=== PATIENT | female | born 1995 | race Caucasian/White ===

== ENCOUNTER 2020-04-24 14:00 | Emergency (ER) | payer MEDICAID ==
[~2020-04-24] VITALS: Ht 167.6 cm; Wt 59.0 kg
[2020-04-24] MEDS ORDERED: LORA-259 PO (14:10)
[2020-04-24] MEDS ORDERED: ONDA4TAB5 PO (14:10)
[2020-04-24] MEDS ORDERED: HYDR-3972 PO (14:10)
[2020-04-24] MEDS ORDERED: LAMO150T6 PO (14:10)
--- NOTE | 2020-04-24 14:14 | NUR ---
MD@bedside, medical screening exam in progress
[2020-04-24] MEDS ORDERED: ONDANSETRON 4 MG/2 ML VIAL ONE (14:26)
[2020-04-24] MEDS ORDERED: HYDROMORPHONE 1 MG/1 ML DISP.SYRIN ONE ×2 (14:26→15:29)
[2020-04-24] MEDS ORDERED: HYDROMORPHONE 1 MG/1 ML DISP.SYRIN IV ONE ×2 (14:30→15:30)
[2020-04-24] MEDS ORDERED: ONDANSETRON 4 MG/2 ML VIAL IV ONE (14:30)
[2020-04-24] MEDS ORDERED: IV NORMAL SALINE 1000 ML BAG IV ONE (14:30)
--- NOTE | 2020-04-24 14:35 | NUR ---
Comfort and safety measures maintained (blanket, pillow, emesis bag@bedside)
[2020-04-24 14:39] LABS: BASOPHILS % (AUTO) 0.4 % (0.0-2.0); EOSINOPHILS # (AUTO) 0.3 K/uL (0.0-0.7); EOSINOPHILS % (AUTO) 3.8 % (0.0-7.0); HEMATOCRIT 42.1 % (31.2-41.9); LYMPHOCYTES # (AUTO) 2.1 K/uL (20.0-40.0); LYMPHOCYTES % (AUTO) 25.6 % (20.5-51.5); MEAN CORPUSCULAR HEMOGLOBIN 28.2 uug (24.7-32.8); MEAN CORPUSCULAR HGB CONC 33 g/dL (32.3-35.6); MEAN CORPUSCULAR VOLUME 84.6 fL (75.5-95.3); MONOCYTES # (AUTO) 0.5 K/uL (2.0-10.0); MONOCYTES % (AUTO) 5.6 % (0.0-11.0); NEUTROPHILS # (AUTO) 5.3 K/uL (1.8-8.9); NEUTROPHILS % (AUTO) 64.6 % (38.5-71.5); PLATELET COUNT (AUTO) 261 K/uL (179-408); RED BLOOD CELL COUNT(AUTO) 4.98 MIL/uL (3.63-4.92); WHITE BLOOD COUNT (AUTO) 8.3 K/uL (3.8-11.8)
[2020-04-24 14:45] LABS: CREATININE 0.7 mg/dL (0.6-1.3); POTASSIUM 3.5 mmol/L (3.5-5.1)
[2020-04-24 14:47] LABS: *BILIRUBIN,URIN NEGATIVE (NEGATIVE); *BLOOD, URINE 2+ (NEGATIVE); *CLARITY,URINE CLEAR (CLEAR); *COLOR,URINE YELLOW (YELLOW); *KETONES,URINE NEGATIVE (NEGATIVE); *UROBILINOGEN,URINE 0.2 E.U./dl (NORMAL); LEUKOCYTE ESTERASE ,URINE NEGATIVE (NEGATIVE); NITRITE, URINE NEGATIVE (NEGATIVE); PH,URINE 8.5 (5.0-8.0); UGLUCOSE NEGATIVE (NEGATIVE)
[2020-04-24 14:50] LABS: *URINE HCG, QUAL POSITIVE (NEGATIVE)
[2020-04-24 14:52] LABS: BILIRUBIN,DIRECT 0.3 mg/dL (0.0-0.2); BILIRUBIN,TOTAL 1.5 mg/dL (0.2-1.0); TOTAL PROTEIN, SERUM 7.7 g/dL (6.4-8.2)
--- NOTE | 2020-04-24 14:59 | NUR ---
MD@bedside, informing patient that the her urine test=positive. Patient says that this is a surprising news, patient is still c/o pains & nausea. Extensive explanation and information was given to patient re: negative effects of narcotics & IV medicines to early . Patient verbalized understanding.
--- NOTE | 2020-04-24 15:11 | NUR ---
Patient is now tearful, listening ear provided.
--- NOTE | 2020-04-24 15:18 | NUR ---
Patient wants more pain & anti-nausea medicines. "Reglan works better for me." per patient's verbalization. MD is aware.
[2020-04-24 15:19] LABS: BACTERIA,URINE FEW /HPF (NONE SEEN); SQUAMOUS EPITHELIAL CELL,UR FEW /HPF (NONE SEEN); WBC,URINE 0-3 /HPF (0-3)
[2020-04-24] MEDS ORDERED: METOCLOPRAMIDE HCL 10 MG/2 ML VIAL ONE (15:28)
[2020-04-24] MEDS ORDERED: METOCLOPRAMIDE HCL 10 MG/2 ML VIAL IV ONE (15:30)
--- NOTE | 2020-04-24 15:36 | NUR ---
OB pad given per patient's request. New face mask provided. Comfort & safety measures maintained.
--- NOTE | 2020-04-24 15:47 | NUR ---
Patient is seen calmer now, not crying anymore, pending U/S & lab tests results@this time.
[2020-04-24 16:05] LABS: *URINE HCG, QUAL POSITIVE (NEGATIVE)
--- NOTE | 2020-04-24 16:30 | NUR ---
Patient is resting comfortably in bed with eyes closed, still for U/S scan
--- NOTE | 2020-04-24 17:52 | NUR ---
Patient ate crackers & drank juice. No nausea expressed. No vomiting seen while in ER. IV removed. Catheter intact and site benign. Pressure and 4x4 gauze applied to site. No bleeding noted. Patient discharged to home in stable condition & steady gait. Written and verbal after care instructions given to patient. Patient verbalized understanding & compliance of instructions. Stressed follow up with her primary doctor/[id number] or return to ER for worsening s/s.
--- NOTE | 2020-04-24 17:54 | NUR ---
Patient said that she already called for a ride & will not be driving home.
== END 2020-04-24 18:04 | disposition home or self-care (01) ==
LOC: ER 14:04
DX: R10.31 Right lower quadrant pain (principal); Z85.43 Personal history of malignant neoplasm of ovary; Z92.3 Personal history of irradiation; Z92.21 Personal history of antineoplastic chemotherapy; R11.2 Nausea with vomiting, unspecified; N92.6 Irregular menstruation, unspecified
CPT/HCPCS: 36415; 76856; 80048; 80076; 81001; 83690; 84702; 84703 ×2; 85025; 86850; 86900; 86901; 96374; 96375; 96376; 99285; J1170 ×2; J2405; J2765; A4663; J3490; J7030

== ENCOUNTER 2020-05-05 14:56 | Emergency (ER) | payer MEDICAID ==
[~2020-05-05] VITALS: Ht 165.1 cm; Wt 54.4 kg
[~2020-05-05 14:56] MED LIST: HYDR-3972 PO; LAMO150T6 PO; LORA-259 PO; ONDA4TAB5 PO
--- NOTE | 2020-05-05 15:00 | NUR ---
Dr. Martin at bedside for MSE
--- NOTE | 2020-05-05 15:11 | NUR ---
Patient ambulating with steady gait. A&O x4. patient noted smiling, laughing, very conversive with staff. c/o RLQ ABD pain 10/10 on the pain scale. 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 Speech is clear and able to make needs known / follow commands. Breathing even and unlabored. Denies any cough, SOB, CP, Dizziness. Patient states she was last in the ER on 04/24/2020 but per ED report patient has been seen at other ER since then. 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 asked patient what has been done and patient stated "just general check ups and they did not find anything. They told me to come to the ER if symptoms do not become better". Safety precautions implemented. s/r up x2
[2020-05-05] MEDS ORDERED: HYDROMORPHONE 1 MG/1 ML DISP.SYRIN IV ONE ×3 (15:15→18:15)
[2020-05-05] MEDS ORDERED: ONDANSETRON 4 MG/2 ML VIAL IV ONE ×5 (15:15→20:15)
[2020-05-05] MEDS ORDERED: IV NORMAL SALINE 1000 ML BAG IV ONE ×3 (15:15→18:15)
[2020-05-05] MEDS ORDERED: HYDROMORPHONE 2 MG/1 ML DISP.SYRIN ONE ×2 (15:29→16:27)
[2020-05-05] MEDS ORDERED: ONDANSETRON 4 MG/2 ML VIAL ONE ×5 (15:29→20:11)
[2020-05-05 15:38] LABS: *BILIRUBIN,URIN NEGATIVE (NEGATIVE); *BLOOD, URINE NEGATIVE (NEGATIVE); *CLARITY,URINE CLEAR (CLEAR); *COLOR,URINE LIGHT YELLOW (YELLOW); *KETONES,URINE NEGATIVE (NEGATIVE); *UROBILINOGEN,URINE 0.2 E.U./dl (NORMAL); LEUKOCYTE ESTERASE ,URINE NEGATIVE (NEGATIVE); NITRITE, URINE NEGATIVE (NEGATIVE); PH,URINE >=9.0 (5.0-8.0); UGLUCOSE NEGATIVE (NEGATIVE)
[2020-05-05 15:39] LABS: BASOPHILS % (AUTO) 0.6 % (0.0-2.0); EOSINOPHILS # (AUTO) 0.2 K/uL (0.0-0.7); HEMATOCRIT 43.3 % (31.2-41.9); HEMOGLOBIN 14.6 g/dL (10.9-14.3); LYMPHOCYTES # (AUTO) 1.8 K/uL (20.0-40.0); LYMPHOCYTES % (AUTO) 23.8 % (20.5-51.5); MEAN CORPUSCULAR HEMOGLOBIN 28.9 uug (24.7-32.8); MEAN CORPUSCULAR HGB CONC 34 g/dL (32.3-35.6); MEAN CORPUSCULAR VOLUME 85.8 fL (75.5-95.3); MONOCYTES # (AUTO) 0.5 K/uL (2.0-10.0); MONOCYTES % (AUTO) 6.8 % (0.0-11.0); NEUTROPHILS # (AUTO) 5.1 K/uL (1.8-8.9); NEUTROPHILS % (AUTO) 65.8 % (38.5-71.5); PLATELET COUNT (AUTO) 303 K/uL (179-408); RED BLOOD CELL COUNT(AUTO) 5.04 MIL/uL (3.63-4.92); WHITE BLOOD COUNT (AUTO) 7.7 K/uL (3.8-11.8)
[2020-05-05 15:55] LABS: ALANINE AMINOTRANSFERASE 65 U/L (14-59); ALKALINE PHOSPHATASE 89 U/L (50-136); ASPARTATE AMINOTRANSFERASE 70 U/L (15-37); BILIRUBIN,DIRECT 0.2 mg/dL (0.0-0.2); BILIRUBIN,TOTAL 2.3 mg/dL (0.2-1.0); CARBON DIOXIDE 22 mmol/L (21-32); CHLORIDE 102 mmol/L (98-107); CREATININE 0.8 mg/dL (0.6-1.3); GLUCOSE 115 mg/dL (74-106); LIPASE 85 U/L (73-393); POTASSIUM 3.3 mmol/L (3.5-5.1); TOTAL PROTEIN, SERUM 8.1 g/dL (6.4-8.2); UREA NITROGEN, BLOOD 6 mg/dL (7-18)
--- NOTE | 2020-05-05 16:11 | NUR ---
Note undone in EDM - 05/05/20 at 1644 by ANKITA Patient ambulating with steady gait. A&O x4. patient noted smiling, laughing, very conversive with staff. c/o RLQ ABD pain 10/10 on the pain scale. 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 Speech is clear and able to make needs known / follow commands. Breathing even and unlabored. Denies any cough, SOB, CP, Dizziness. Patient states she was last in the ER on 04/24/2020 but per ED report patient has been seen at other ER since then. 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 asked patient what has been done and patient stated "just general check ups and they did not find anything. They told me to come to the ER if symptoms do not become better". Safety precautions implemented. s/r up x2
[2020-05-05] MEDS ORDERED: POTASSIUM CHLORIDE 20 MEQ TAB.PRT.SR PO ONE (16:30)
[2020-05-05] MEDS ORDERED: POTASSIUM CHLORIDE 20 MEQ TAB.PRT.SR ONE (16:37)
--- NOTE | 2020-05-05 17:23 | NUR ---
Called [facility] for panel placement
[2020-05-05] MEDS ORDERED: HYDROMORPHONE 1 MG/1 ML DISP.SYRIN ONE (18:11)
--- NOTE | 2020-05-05 18:26 | NUR ---
Pagedeedee Benoit for surgery consult
--- NOTE | 2020-05-05 19:00 | NUR ---
Report given to dai WALLS
--- NOTE | 2020-05-05 19:06 | NUR ---
Dr. Benoit speaking with Dr. Ortiz at this time.
[2020-05-05] MEDS ORDERED: ACETAMINOPHEN ES 500 MG TABLET ONE (19:30)
[2020-05-05] MEDS ORDERED: ACETAMINOPHEN ES 500 MG TABLET PO ONE (19:30)
[2020-05-05 19:57] LABS: BASOPHILS # (AUTO) 0.1 K/uL (0.0-8.0); BASOPHILS % (AUTO) 0.7 % (0.0-2.0); EOSINOPHILS # (AUTO) 0.3 K/uL (0.0-0.7); EOSINOPHILS % (AUTO) 3.5 % (0.0-7.0); HEMATOCRIT 37.6 % (31.2-41.9); HEMOGLOBIN 12.7 g/dL (10.9-14.3); LYMPHOCYTES % (AUTO) 26.8 % (20.5-51.5); MEAN CORPUSCULAR HEMOGLOBIN 29.1 uug (24.7-32.8); MEAN CORPUSCULAR HGB CONC 34 g/dL (32.3-35.6); MEAN CORPUSCULAR VOLUME 86.1 fL (75.5-95.3); MONOCYTES # (AUTO) 0.6 K/uL (2.0-10.0); MONOCYTES % (AUTO) 8.3 % (0.0-11.0); NEUTROPHILS # (AUTO) 4.6 K/uL (1.8-8.9); NEUTROPHILS % (AUTO) 60.7 % (38.5-71.5); PLATELET COUNT (AUTO) 248 K/uL (179-408); RED BLOOD CELL COUNT(AUTO) 4.37 MIL/uL (3.63-4.92); WHITE BLOOD COUNT (AUTO) 7.5 K/uL (3.8-11.8)
[2020-05-05] MEDS ORDERED: IV NORMAL SALINE 250 ML IV ONE (20:36)
[2020-05-05] MEDS ORDERED: SWABABLE VALVE TRANSFER SET EA MC ONE (20:36)
[2020-05-05] MEDS ORDERED: IOHEXOL 300MG/ML 100 ML INFUS..BTL ONE (20:36)
--- NOTE | 2020-05-05 20:59 | NUR ---
Patient returned from ct scan, c/o abdominal pain. Dr. Ortiz notified, order for ibuprofen 800mg received.
[2020-05-05] MEDS ORDERED: IBUPROFEN 800 MG TABLET PO ONE (21:00)
[2020-05-05] MEDS ORDERED: IBUPROFEN 800 MG TABLET ONE (21:09)
--- NOTE | 2020-05-05 21:25 | NUR ---
Patient ambulated to bathroom with steady gait.
[2020-05-05] MEDS ORDERED: GABAPENTIN 300 MG CAPSULE PO ONE (21:30)
[2020-05-05] MEDS ORDERED: ONDANSETRON ODT 4 MG TAB.RAPDIS SL ONE (21:30)
[2020-05-05] MEDS ORDERED: GABAPENTIN 300 MG CAPSULE ONE (21:33)
[2020-05-05] MEDS ORDERED: ONDANSETRON ODT 4 MG TAB.RAPDIS ONE (21:33)
--- NOTE | 2020-05-05 21:40 | NUR ---
Patient discharged to home in stable condition. Written and verbal after care instructions given. Patient verbalizes understanding of instructions. Stressed follow up or return to ER for worsening s/s. patient left with stable gait, picked by UBER.
[2020-05-05 21:41] VITALS: BP 120/88
== END 2020-05-05 21:41 | disposition home or self-care (01) ==
LOC: ER 14:56
DX: A08.4 Viral intestinal infection, unspecified (principal); E86.0 Dehydration; E87.6 Hypokalemia; G89.29 Other chronic pain; Z85.43 Personal history of malignant neoplasm of ovary; Z92.21 Personal history of antineoplastic chemotherapy; K42.9 Umbilical hernia without obstruction or gangrene
CPT/HCPCS: 36415; 74177; 76705; 80048; 80076; 81001; 83605; 83690; 84702; 85025 ×2; 87426; 96361; 96374; 96375; 96376; 99285; J1170 ×3; J2405 ×5; Q9967; A4663; A9150; J7030; J7050; Q0162

== ENCOUNTER 2020-05-06 19:59 | Inpatient (IN) | payer MEDICAID ==
[~2020-05-06] VITALS: Ht 167.6 cm; Wt 64.0 kg
--- NOTE | 2020-05-06 20:08 | NUR ---
Pt arrived at the ER with cmplain of worsening abd. pain. Was here yesterday for ABD pain, full work up was done and was discharge.
--- NOTE | 2020-05-06 20:25 | NUR ---
Dr. Denson at bedside for MSE.
--- NOTE | 2020-05-06 20:28 | NUR ---
Epic panel call placed, spoke to Theodore stated she will get a hold of Dr. Gaytan.
[2020-05-06] MEDS ORDERED: diphenhydrAMINE 50 MG/1 ML VIAL IV ONE (20:30)
[2020-05-06] MEDS ORDERED: HYDROMORPHONE 1 MG/1 ML DISP.SYRIN IV ONE (20:30)
[2020-05-06] MEDS ORDERED: METOCLOPRAMIDE HCL 10 MG/2 ML VIAL IV ONE (20:30)
--- NOTE | 2020-05-06 20:32 | NUR ---
Dr. Denson on panel call with Dr. Gaytan. Patient accepted for admission to Med SUrg unit, Dx Abdominal pain.
[2020-05-06] MEDS ORDERED: METOCLOPRAMIDE HCL 10 MG/2 ML VIAL ONE (20:33)
[2020-05-06] MEDS ORDERED: diphenhydrAMINE 50 MG/1 ML VIAL ONE (20:33)
[2020-05-06] MEDS ORDERED: HYDROMORPHONE 1 MG/1 ML DISP.SYRIN ONE (20:34)
[2020-05-06 20:52] LABS: BASOPHILS # (AUTO) 0.1 K/uL (0.0-8.0); BASOPHILS % (AUTO) 0.8 % (0.0-2.0); EOSINOPHILS # (AUTO) 0.4 K/uL (0.0-0.7); EOSINOPHILS % (AUTO) 4.6 % (0.0-7.0); HEMATOCRIT 41.3 % (31.2-41.9); HEMOGLOBIN 14.2 g/dL (10.9-14.3); LYMPHOCYTES # (AUTO) 2.3 K/uL (20.0-40.0); LYMPHOCYTES % (AUTO) 27.7 % (20.5-51.5); MEAN CORPUSCULAR HEMOGLOBIN 29.4 uug (24.7-32.8); MEAN CORPUSCULAR HGB CONC 34 g/dL (32.3-35.6); MEAN CORPUSCULAR VOLUME 85.6 fL (75.5-95.3); MONOCYTES # (AUTO) 0.6 K/uL (2.0-10.0); MONOCYTES % (AUTO) 7.2 % (0.0-11.0); NEUTROPHILS % (AUTO) 59.7 % (38.5-71.5); PLATELET COUNT (AUTO) 301 K/uL (179-408); RED BLOOD CELL COUNT(AUTO) 4.83 MIL/uL (3.63-4.92); WHITE BLOOD COUNT (AUTO) 8.3 K/uL (3.8-11.8)
[2020-05-06 20:54] LABS: CREATININE 0.8 mg/dL (0.6-1.3); POTASSIUM 3.6 mmol/L (3.5-5.1)
[2020-05-06 21:00] LABS: BILIRUBIN,DIRECT 0.2 mg/dL (0.0-0.2); BILIRUBIN,TOTAL 0.7 mg/dL (0.2-1.0); TOTAL PROTEIN, SERUM 8.1 g/dL (6.4-8.2)
[2020-05-06 21:02] LABS: *BILIRUBIN,URIN NEGATIVE (NEGATIVE); *BLOOD, URINE NEGATIVE (NEGATIVE); *CLARITY,URINE CLEAR (CLEAR); *COLOR,URINE YELLOW (YELLOW); *KETONES,URINE NEGATIVE (NEGATIVE); *UROBILINOGEN,URINE 0.2 E.U./dl (NORMAL); LEUKOCYTE ESTERASE ,URINE NEGATIVE (NEGATIVE); NITRITE, URINE NEGATIVE (NEGATIVE); UGLUCOSE NEGATIVE (NEGATIVE)
[2020-05-06 21:03] LABS: *URINE HCG, QUAL NEGATIVE (NEGATIVE)
--- NOTE | 2020-05-06 21:17 | NUR ---
Patient does not have active medication list with her, states she will research it.
--- NOTE | 2020-05-06 21:28 | NUR ---
Called Med Surg unit for report, nurse not ready to received report.
[2020-05-06] MEDS ORDERED: ACETAMINOPHEN 325 MG TABLET PO PRN (21:30)
[2020-05-06] MEDS ORDERED: Z GUARD REMEDY PASTE 57 GM TUBE TOP PRN (21:30)
[2020-05-06] MEDS ORDERED: diphenhydrAMINE 50 MG/1 ML VIAL IV PRN (21:30)
[2020-05-06] MEDS ORDERED: MAGNESIUM HYDROXIDE 30 ML LIQUID UDC PO PRN (21:30)
--- NOTE | 2020-05-06 21:42 | NUR ---
Pt. admitted to Med/surg unit, Room 305, under care of Dr. Gaytan. Belongs List completed
[2020-05-06 21:45] VITALS: BP 114/76
[2020-05-06] MEDS: IV NS 1000 ML 1,000 ML IV PRN (22:05)
[2020-05-06] MEDS: HYDROMORPHONE 1 MG/1 ML DISP.SYRIN IV PRN (22:21)
[2020-05-06] MEDS: ONDANSETRON 4 MG/2 ML VIAL IV PRN (23:34)
[2020-05-07] MEDS ORDERED: ZOLPIDEM 5 MG TABLET PO PRN (00:30)
[2020-05-07] MEDS ORDERED: HYDROMORPHONE 1 MG/1 ML DISP.SYRIN IV PRN (00:30)
--- NOTE | 2020-05-07 01:00 | NUR ---
PATIENT C/O OF PAIN DESPITE ADMINISTRATION OF DILAUDID 2MG. WILL CONTACT EMR TRAINER.
--- NOTE | 2020-05-07 01:05 | NUR ---
Smita GILES DNP ORDERED TO CANCEL DILAUDID 1MG Q4H PRN AND GIVE PATIENT NORCO 5/325 PRN PAIN EVERY FOUR HOURS PRN. WILL ADMINISTER AND ASSESS.
[2020-05-07] MEDS: HYDROCODONE/APAP 5-325MG TABLET PO PRN (01:09)
--- NOTE | 2020-05-07 01:26 | NUR ---
PATIENT RECEIVED FROM ER. AAOX4. V/S STABLE. NO SIGNS OF ACUTE DISTRESS. C/O OF PAIN AND CONSISTENT PAIN. ADMINISTERED DILAUDID AND NORCO FOR PAIN MANAGEMENT. PIV INTACT AND PATENT. GAIT UNSTEADY PATIENT AWARE TO CALL FOR ASSISTANCE TO BATHROOM. MRI PAPERWORK COMPLETED AND SIGNED. SKIN INTACT. WILL CONTINUE TO ASSESS AND MONITOR.
[2020-05-07] MEDS: HYDROMORPHONE 1 MG/1 ML DISP.SYRIN IV PRN (03:16)
[2020-05-07 04:03] VITALS: BP 137/72
[2020-05-07 05:58] LABS: BASOPHILS # (AUTO) 0.1 K/uL (0.0-8.0); BASOPHILS % (AUTO) 0.9 % (0.0-2.0); EOSINOPHILS # (AUTO) 0.4 K/uL (0.0-0.7); EOSINOPHILS % (AUTO) 5.6 % (0.0-7.0); HEMATOCRIT 34.6 % (31.2-41.9); HEMOGLOBIN 11.9 g/dL (10.9-14.3); LYMPHOCYTES # (AUTO) 1.9 K/uL (20.0-40.0); LYMPHOCYTES % (AUTO) 28.3 % (20.5-51.5); MEAN CORPUSCULAR HEMOGLOBIN 29.4 uug (24.7-32.8); MEAN CORPUSCULAR HGB CONC 34 g/dL (32.3-35.6); MEAN CORPUSCULAR VOLUME 85.4 fL (75.5-95.3); MONOCYTES # (AUTO) 0.6 K/uL (2.0-10.0); MONOCYTES % (AUTO) 9.3 % (0.0-11.0); NEUTROPHILS # (AUTO) 3.8 K/uL (1.8-8.9); NEUTROPHILS % (AUTO) 55.9 % (38.5-71.5); PLATELET COUNT (AUTO) 236 K/uL (179-408); RED BLOOD CELL COUNT(AUTO) 4.05 MIL/uL (3.63-4.92); WHITE BLOOD COUNT (AUTO) 6.9 K/uL (3.8-11.8)
[2020-05-07 06:08] LABS: BILIRUBIN,DIRECT 0.1 mg/dL (0.0-0.2); BILIRUBIN,TOTAL 0.5 mg/dL (0.2-1.0); CREATININE 0.8 mg/dL (0.6-1.3); PHOSPHOROUS 4.2 mg/dL (2.5-4.9); POTASSIUM 3.8 mmol/L (3.5-5.1); TOTAL PROTEIN, SERUM 6.7 g/dL (6.4-8.2)
[2020-05-07] MEDS: HYDROMORPHONE 2 MG/1 ML DISP.SYRIN IV PRN ×3 (07:51→19:58)
--- NOTE | 2020-05-07 08:00 | NUR ---
Patient in bed, alert and verbally responsive. No signs of distress noted. Afebrile. Dilaudid 2mg IV given for Abdominal pain. kept clean and comfortable. Patient with schedule to have MRI of ABD w/o contrast today, awaiting to schedule. All needs attended. Will continue to monitor.
[2020-05-07] MEDS: PANTOPRAZOLE SODIUM 40 MG VIAL IV SCH (08:06)
[2020-05-07] MEDS: LAMOTRIGINE 100 MG TABLET PO SCH (08:11)
[2020-05-07] MEDS: ONDANSETRON 4 MG/2 ML VIAL IV PRN ×2 (08:45→17:38)
[2020-05-07 11:32] VITALS: BP 110/71
--- NOTE | 2020-05-07 12:38 | NUR ---
Patient was picked up by 2 EMT for MRI of ABD w/ w/o contrast at [facility].
[2020-05-07] MEDS ORDERED: GADOTERIDOL 279.3 MG/ML, 15 ML VIAL ONE (14:14)
--- NOTE | 2020-05-07 14:30 | NUR ---
Patient came back from MRI at [facility] in Stable condition.
--- NOTE | 2020-05-07 14:59 | NUR ---
patient complained of severe Abdominal Pain, called Dr. hayes, with Order to give Dilaudid 2mg x 1 now.
[2020-05-07] MEDS ORDERED: HYDROMORPHONE 2 MG/1 ML DISP.SYRIN IV ONE (15:00)
[2020-05-07] MEDS: IV NS 1000 ML 1,000 ML IV PRN (15:11)
[2020-05-07 16:00] VITALS: BP 121/72
--- NOTE | 2020-05-07 18:07 | NUR ---
patient in bed, awake, alert and verbally responsive. No signs of distress noted. NO SOB, Pain medication Dilaudid 2mg IV give q4H PRN, IVF on RAC infusing well. kept clean and comfortable. Will endorse to Oncoming Nurse.
--- NOTE | 2020-05-07 20:00 | NUR ---
PATIENT RECEIVED INTO CARE SITTING UP IN BED, WATCHING MOVIES ON HER LAPTOP. PATIENT IS ALERT/ORIENTED X4 AND COMPLAINING OF ABDOMINAL PAIN AT 10/10. ALL SAFETY, FALL, AND ALLERGY PRECAUTION MEASURES ARE IN PLACE. CALL LIGHT AND PERSONAL ITEMS ARE WITHIN REACH. WILL CONTINUE TO MONITOR AND ASSESS.
[2020-05-07 20:20] VITALS: BP 114/58
--- NOTE | 2020-05-07 22:35 | NUR ---
PATIENT ASKED IF ON-CALL MD WILL BE IN TONIGHT BECAUSE SHE HAS QUESTIONS REGARDING HER MRI TODAY THAT SHE DOES NOT FEEL WERE ADEQUATELY ADDRESSED THIS AFTERNOON WHEN THEY GAVE HER RESULTS. PT ALSO ASKED IF THERE IS AN ORDER FOR DILAUDID FOR BREAKTHROUGH PAIN, LIKE WHAT SHE WAS GIVEN THIS AFTERNOON, BECAUSE SHE FEELS THAT HER PAIN HAS NOT BEEN ADEQUATELY RELIEVED WITH 2MG/1mL DILAUDID THIS NURSE PROVIDED TO PATIENT AT APPROXIMATELY 2000h. THIS NURSE ADVISED THE PT ON-CALL MD WILL NOT BE IN AT THIS LATE HOUR AND THE PREVIOUS ORDER FOR THE BREAKTHROUGH PAIN WAS FOR ONE TIME ONLY. PT ASKED WHEN HER NAUSEA MEDICATION WAS DUE BECAUSE THE PAIN SHE IS EXPERIENCING IS CAUSING HER TO BE NAUSEAS. THIS NURSE ADVISED PT NEXT ZOFRAN IS DUE IN 1 HOUR. PT SAID OK.
[2020-05-08] MEDS: HYDROMORPHONE 2 MG/1 ML DISP.SYRIN IV PRN ×3 (00:06→07:55)
--- NOTE | 2020-05-08 05:00 | NUR ---
PATIENT SLEPT INTERMITTENTLY THROUGHOUT NIGHT WITH COMPLAINTS OF PAIN ADDRESSED WITH PRESCRIBED ANALGESICS, WHICH WERE TOLERATED WELL, WITH NO ADVERSE SIDE EFFECTS VERBALIZED BY PT OR NOTED/OBSERVED BY THIS NURSE. ALL NURSING NEEDS WERE MET PROMPTLY AND PATIENT IS WARM, DRY, AND COMFORTABLE. IV SITE LEFT RIGHT AC IS INTACT AND PATENT WITH NS IVF RUNNING AT 75mL/HR. ALL SAFETY, FALL, AND ALLERGY PRECAUTIONS REMAIN IN PLACE. CALL LIGHT AND PERSONAL ITEMS REMAIN WITHIN REACH.
[2020-05-08 05:58] VITALS: BP 110/73
[2020-05-08] MEDS: ONDANSETRON 4 MG/2 ML VIAL IV PRN ×2 (07:54→15:45)
[2020-05-08] MEDS: LAMOTRIGINE 100 MG TABLET PO SCH (07:54)
[2020-05-08] MEDS: PANTOPRAZOLE SODIUM 40 MG VIAL IV SCH (07:54)
--- NOTE | 2020-05-08 08:00 | NUR ---
awake alert and oriented x3, no ss of distress but pain lower abdomen with nausea feeling. prn zofran and dilaudid given. observed
[2020-05-08] MEDS: IV NS 1000 ML 1,000 ML IV PRN (08:07)
--- NOTE | 2020-05-08 08:44 | NUR ---
C/O CONSTIPATIONX3 DAYS, DR STRINGER IN WITH ORDER FOR SUPPOSITORY. DC PLAN INITIATED
[2020-05-08] MEDS ORDERED: BISACODYL 10 MG SUPP.RECT RC ONE (08:45)
[2020-05-08] MEDS ORDERED: MAGNESIUM CITRATE 296 ML BOTTLE PO ONE (08:45)
[2020-05-08 11:41] VITALS: BP 119/86
[2020-05-08] MEDS: HYDROCODONE/APAP 5-325MG TABLET PO PRN ×2 (12:00→15:44)
--- NOTE | 2020-05-08 12:00 | NUR ---
CONTINUE WITH PAIN MANGEMENT , MEDICATED FOR CONSTIPATION
[2020-05-08 16:01] VITALS: BP 127/80
--- NOTE | 2020-05-08 16:54 | NUR ---
DISCHARGED HOME STABLE VIA CASSIDY WITH DISCHARGED HOME MEDS AND FOLLOW-UP INSTRUCTION WITH PRIMARY DOCTOR
== END 2020-05-08 17:05 | disposition home or self-care (01) | DRG 812 ==
LOC: ER 20:01 → MEDSURG3 21:30
PROVIDERS: ADMIT Internal Medicine; ATTEND Internal Medicine
DX: T40.7X1A Poisoning by cannabis (derivatives), accidental (unintentional), initial encounter (principal); R10.30 Lower abdominal pain, unspecified; Z85.43 Personal history of malignant neoplasm of ovary; R11.2 Nausea with vomiting, unspecified; E86.0 Dehydration; G89.29 Other chronic pain; Z92.3 Personal history of irradiation; K65.9 Peritonitis, unspecified; Z92.21 Personal history of antineoplastic chemotherapy; K76.9 Liver disease, unspecified; F12.988 Cannabis use, unspecified with other cannabis-induced disorder; Y92.009 Unspecified place in unspecified non-institutional (private) residence as the place of occurrence of the external cause
CPT/HCPCS: 36415; 83690; 83735; 84100; 84703; 85025; A4663; A9579; C9113; G0378; J1170; J1200; J2405; J2765; J7030

== ENCOUNTER 2020-05-31 15:57 | Emergency (ER) | payer MEDICAID ==
[~2020-05-31] VITALS: Ht 167.6 cm; Wt 63.5 kg
--- NOTE | 2020-05-31 16:20 | NUR ---
Patient ambulated with stable gait. Speech is clear, speaks in complete sentences. No acute neuro deficits noted. Patient came for c/o RLQ pain. Respiratory even and unlabored no cough no sob. Denies any cp, palpitations. Denies any v/d but reports nausea. Denies any distress. Patient in bed at lowest position, sr upx2, call light within reach. Fall precautions implemented per protocol.
[2020-05-31] MEDS ORDERED: ONDANSETRON 4 MG/2 ML VIAL IV ONE (16:30)
[2020-05-31] MEDS ORDERED: IV NORMAL SALINE 1000 ML BAG IV ONE (16:30)
[2020-05-31] MEDS ORDERED: ONDANSETRON 4 MG/2 ML VIAL ONE (16:31)
[2020-05-31] MEDS ORDERED: FENTANYL CITRATE 100 MCG/2 ML AMPUL ONE (16:52)
[2020-05-31 16:54] LABS: BASOPHILS # (AUTO) 0.1 K/uL (0.0-8.0); EOSINOPHILS # (AUTO) 0.2 K/uL (0.0-0.7); EOSINOPHILS % (AUTO) 2.2 % (0.0-7.0); HEMATOCRIT 38.7 % (31.2-41.9); HEMOGLOBIN 12.9 g/dL (10.9-14.3); LYMPHOCYTES # (AUTO) 1.9 K/uL (20.0-40.0); MEAN CORPUSCULAR HEMOGLOBIN 28.5 uug (24.7-32.8); MEAN CORPUSCULAR HGB CONC 33 g/dL (32.3-35.6); MEAN CORPUSCULAR VOLUME 85.5 fL (75.5-95.3); MONOCYTES # (AUTO) 0.6 K/uL (2.0-10.0); MONOCYTES % (AUTO) 7.4 % (0.0-11.0); NEUTROPHILS # (AUTO) 5.3 K/uL (1.8-8.9); NEUTROPHILS % (AUTO) 65.4 % (38.5-71.5); PLATELET COUNT (AUTO) 285 K/uL (179-408); RED BLOOD CELL COUNT(AUTO) 4.52 MIL/uL (3.63-4.92)
[2020-05-31] MEDS ORDERED: FENTANYL CITRATE 100 MCG/2 ML AMPUL IV ONE (17:00)
[2020-05-31 17:05] LABS: CREATININE 0.6 mg/dL (0.6-1.3); POTASSIUM 3.6 mmol/L (3.5-5.1)
[2020-05-31 17:10] LABS: BILIRUBIN,DIRECT 0.2 mg/dL (0.0-0.2); BILIRUBIN,TOTAL 0.9 mg/dL (0.2-1.0)
[2020-05-31 17:11] LABS: TOTAL PROTEIN, SERUM 7.3 g/dL (6.4-8.2)
--- NOTE | 2020-05-31 17:42 | NUR ---
Manuel lim in [facility] - 05/31/20 at 1743 by BRADLEY US tech at bedside performing MSE
--- NOTE | 2020-05-31 17:43 | NUR ---
US TECH at bedside for scan
--- NOTE | 2020-05-31 19:07 | NUR ---
Handoff report given to [place]
[2020-05-31] MEDS ORDERED: HYDROCODONE/APAP 5-325MG TABLET ONE (19:29)
--- NOTE | 2020-05-31 19:29 | NUR ---
IV removed. Catheter intact and site benign. Pressure and 4x4 gauze applied to site. No bleeding noted.
[2020-05-31] MEDS ORDERED: HYDROCODONE/APAP 5-325MG TABLET PO ONE (19:30)
--- NOTE | 2020-05-31 19:35 | NUR ---
Patient discharged to home in stable condition. Wheeled with wheelchair to "[employer]" Written and verbal after care instructions given. All belongings taken with patient. transfered to taxi without trouble, no sins of distress, no ocmplaints of pain at that time, nstructed not to drive, instructed to follow up with PCP. Patient verbalizes understanding of instructions. Stressed follow up or return to ER for worsening s/s.
[2020-05-31 19:43] VITALS: BP 128/86
== END 2020-05-31 19:35 | disposition home or self-care (01) ==
LOC: ER 15:59
DX: R10.31 Right lower quadrant pain (principal); R00.0 Tachycardia, unspecified; K76.0 Fatty (change of) liver, not elsewhere classified; R03.0 Elevated blood-pressure reading, without diagnosis of hypertension; Z85.43 Personal history of malignant neoplasm of ovary; Z92.3 Personal history of irradiation; Z92.21 Personal history of antineoplastic chemotherapy; G89.29 Other chronic pain; Z88.6 Allergy status to analgesic agent; Z88.4 Allergy status to anesthetic agent
CPT/HCPCS: 76700; 76856; 80048; 80076; 83690; 84702; 85025; 85730; 93005; 96361; 96374; 96375; 99285; J2405; J3010; A4663; J7030

== ENCOUNTER 2020-06-04 22:28 | Inpatient (IN) | payer MEDICAID ==
[~2020-06-04] VITALS: Ht 167.6 cm; Wt 63.5 kg
--- NOTE | 2020-06-04 22:44 | NUR ---
Dr Denson into eval patient.
--- NOTE | 2020-06-04 22:50 | NUR ---
Patient walked into ER c/o RUQ abdominal pain with occasional N/V. Patient states pain has been on going for several months. Came in for worsening pain.
[2020-06-04] MEDS ORDERED: ONDANSETRON 4 MG/2 ML VIAL IV ONE (23:00)
[2020-06-04] MEDS ORDERED: HYDROMORPHONE HCL 2 MG TABLET PO ONE (23:00)
[2020-06-04] MEDS ORDERED: HYDROMORPHONE 1 MG/1 ML DISP.SYRIN ONE (23:06)
[2020-06-04] MEDS ORDERED: ONDANSETRON 4 MG/2 ML VIAL ONE (23:06)
[2020-06-04] MEDS ORDERED: HYDROMORPHONE HCL 2 MG TABLET ONE (23:23)
[2020-06-04 23:37] LABS: *BILIRUBIN,URIN NEGATIVE (NEGATIVE); *BLOOD, URINE NEGATIVE (NEGATIVE); *CLARITY,URINE CLEAR (CLEAR); *COLOR,URINE LIGHT YELLOW (YELLOW); *KETONES,URINE NEGATIVE (NEGATIVE); *UROBILINOGEN,URINE 0.2 E.U./dl (NORMAL); LEUKOCYTE ESTERASE ,URINE NEGATIVE (NEGATIVE); NITRITE, URINE NEGATIVE (NEGATIVE); UGLUCOSE NEGATIVE (NEGATIVE)
[2020-06-05 00:08] LABS: BASOPHILS # (AUTO) 0.1 K/uL (0.0-8.0); BASOPHILS % (AUTO) 0.9 % (0.0-2.0); EOSINOPHILS # (AUTO) 0.3 K/uL (0.0-0.7); EOSINOPHILS % (AUTO) 3.5 % (0.0-7.0); HEMATOCRIT 37.7 % (31.2-41.9); HEMOGLOBIN 12.9 g/dL (10.9-14.3); LYMPHOCYTES # (AUTO) 2.4 K/uL (20.0-40.0); LYMPHOCYTES % (AUTO) 23.9 % (20.5-51.5); MEAN CORPUSCULAR HGB CONC 34 g/dL (32.3-35.6); MEAN CORPUSCULAR VOLUME 84.9 fL (75.5-95.3); MONOCYTES # (AUTO) 0.7 K/uL (2.0-10.0); MONOCYTES % (AUTO) 7.3 % (0.0-11.0); NEUTROPHILS # (AUTO) 6.4 K/uL (1.8-8.9); NEUTROPHILS % (AUTO) 64.4 % (38.5-71.5); PLATELET COUNT (AUTO) 285 K/uL (179-408); RED BLOOD CELL COUNT(AUTO) 4.44 MIL/uL (3.63-4.92); WHITE BLOOD COUNT (AUTO) 9.9 K/uL (3.8-11.8)
[2020-06-05 00:18] LABS: CARBON DIOXIDE 28 mmol/L (21-32); CHLORIDE 105 mmol/L (98-107); CREATININE 0.5 mg/dL (0.6-1.3); GLUCOSE 86 mg/dL (74-106); POTASSIUM 3.8 mmol/L (3.5-5.1); UREA NITROGEN, BLOOD 7 mg/dL (7-18)
[2020-06-05 00:23] LABS: ALANINE AMINOTRANSFERASE 34 U/L (14-59); ALKALINE PHOSPHATASE 89 U/L (50-136); ASPARTATE AMINOTRANSFERASE 21 U/L (15-37); BILIRUBIN,DIRECT 0.2 mg/dL (0.0-0.2); BILIRUBIN,TOTAL 0.9 mg/dL (0.2-1.0); LIPASE 99 U/L (73-393); TOTAL PROTEIN, SERUM 7.3 g/dL (6.4-8.2)
--- NOTE | 2020-06-05 00:50 | NUR ---
PAGED EPIC PANEL. WAITING FOR DR CATHERINE TO CALL BACK.
--- NOTE | 2020-06-05 01:12 | NUR ---
Dr Denson spoke with Dr Figueroa.
[2020-06-05] MEDS ORDERED: HYDROMORPHONE HCL 2 MG TABLET PO ONE (01:15)
[2020-06-05] MEDS ORDERED: HYDROMORPHONE HCL 2 MG TABLET ONE (01:17)
[2020-06-05] MEDS ORDERED: ACETAMINOPHEN 325 MG TABLET PO PRN (01:30)
[2020-06-05] MEDS ORDERED: MAGNESIUM HYDROXIDE 30 ML LIQUID UDC PO PRN (01:30)
[2020-06-05] MEDS ORDERED: Z GUARD REMEDY PASTE 57 GM TUBE TOP PRN (01:30)
[2020-06-05] MEDS ORDERED: ONDANSETRON 4 MG/2 ML VIAL IV PRN (01:30)
--- NOTE | 2020-06-05 02:50 | NUR ---
RECEIVED PATIENT VIA W/C FROM ER. PATIENT IS A/O X4. VSS UPON ARRIVAL TO FLOOR. ONCE PATIENT WAS IN BED, PT. STATED THAT SHE WAS TOLD SHE WOULD GET IV DILAUDID ONCE SHE ARRIVED ON THE FLOOR. PATIENT WAS PREVIOUSLY INFORMED PER ER NURSE PRIOR TO FLOOR ARRIVAL THAT ADMITTING MD PUT IN ORDERS AND NORCO WAS ORDERED FOR PAIN. PATIENT VERBALIZED UNDERSTANDING. ORIENTED PATIENT TO ROOM AND CALL LIGHT. CALL IN REACH. ALL NEEDS ATTENDED. WILL CONTINUE TO MONITOR AND ASSESS.
[2020-06-05 03:40] VITALS: BP 107/74
[2020-06-05 04:39] VITALS: BP 112/68
[2020-06-05] MEDS: HYDROCODONE/APAP 5-325MG TABLET PO PRN ×3 (05:55→14:34)
[2020-06-05 06:20] LABS: BASOPHILS # (AUTO) 0.1 K/uL (0.0-8.0); BASOPHILS % (AUTO) 0.7 % (0.0-2.0); EOSINOPHILS # (AUTO) 0.4 K/uL (0.0-0.7); EOSINOPHILS % (AUTO) 4.4 % (0.0-7.0); HEMATOCRIT 38.1 % (31.2-41.9); HEMOGLOBIN 12.7 g/dL (10.9-14.3); LYMPHOCYTES # (AUTO) 2.7 K/uL (20.0-40.0); LYMPHOCYTES % (AUTO) 28.2 % (20.5-51.5); MEAN CORPUSCULAR HEMOGLOBIN 28.6 uug (24.7-32.8); MEAN CORPUSCULAR HGB CONC 33 g/dL (32.3-35.6); MEAN CORPUSCULAR VOLUME 85.5 fL (75.5-95.3); MONOCYTES # (AUTO) 0.9 K/uL (2.0-10.0); MONOCYTES % (AUTO) 9.7 % (0.0-11.0); NEUTROPHILS # (AUTO) 5.4 K/uL (1.8-8.9); PLATELET COUNT (AUTO) 275 K/uL (179-408); RED BLOOD CELL COUNT(AUTO) 4.46 MIL/uL (3.63-4.92); WHITE BLOOD COUNT (AUTO) 9.4 K/uL (3.8-11.8)
[2020-06-05 06:39] LABS: CREATININE 0.8 mg/dL (0.6-1.3); MAGNESIUM 2.1 mg/dL (1.8-2.4); PHOSPHOROUS 4.4 mg/dL (2.5-4.9); POTASSIUM 3.8 mmol/L (3.5-5.1)
--- NOTE | 2020-06-05 07:30 | NUR ---
IN BED AWAKE ALERT AND ORIENTED X3 STILL WITH ON AND OFF ABD PAIN. TOLERATING REGULAR DIET, NO NAUSEA AND VOMITING. AWAITING HOSPITALIST FOR FURTHER MEDICAL MANAGEMENT. AFEBRILE
[2020-06-05 11:11] VITALS: BP 116/79
--- NOTE | 2020-06-05 11:48 | NUR ---
CONTINUE WITH PAIN MANAGEMENT. STILL C/O ABDOMINAL PAIN MANAGE WITH NORCO PO. PER PATIENT HAD MODERATE AMOUNT OF SOFT STOOL. AFTER BREAKFAST. AFEBRILE
[2020-06-05] MEDS ORDERED: HYDROMORPHONE 1 MG/1 ML DISP.SYRIN IV PRN (15:00)
--- NOTE | 2020-06-05 15:00 | NUR ---
SEEN BY DR PHILLIPS, PLAN DC TONIGHT PENDING CT RESULTS
[2020-06-05 15:10] VITALS: BP 106/66
--- NOTE | 2020-06-05 17:19 | NUR ---
RESULTS OF CT ABDOMEN CALLED TO DR PHILLIPS AND SAID PATIENT CAN BE DISCHARGE TODAY
--- NOTE | 2020-06-05 18:39 | NUR ---
DISCHARGED HOME STABLE WITH OWN PRIVATE RIDE. FOLLOW-UP INSTRUCTION TO PCP GIVEN
== END 2020-06-05 18:30 | disposition home or self-care (01) | DRG 249 ==
LOC: ER 22:28 → EDBD 22:28 → MEDSURG3 06-05 02:25
PROVIDERS: ADMIT Nurse Practitioner Acute Care; ATTEND Nurse Practitioner Acute Care
DX: A08.4 Viral intestinal infection, unspecified (principal); F32.9 Major depressive disorder, single episode, unspecified; F41.9 Anxiety disorder, unspecified; Z88.6 Allergy status to analgesic agent
CPT/HCPCS: 36415; 83690; 83735; 84100; 85025; A4663; G0378; J1170; J2405